=== PATIENT | female | born 1990 | race Two or more races ===

== ENCOUNTER 2024-12-19 19:26 | Observation (INO) | payer MEDICAID, SELFPAY ==
[2024-12-19] VITALS (31 sets, daily range): BP systolic 105–120; BP diastolic 59–77; PULSE 86–131; RESP 18–99; TEMP 36.6; O2SAT 96–100; BMI 31.6
[2024-12-19 19:55] LABS: Collection Type, Urine Voided; RBC,Urine 0 /hpf (0-3)
[2024-12-19] MEDS: RINGERS LACTATED 1000 ML 1,000 ML 999 ML IV (20:43)
[2024-12-19 20:45] LABS: Bacteria,Urine Rare; Bilirubin,Urine Negative (Negative); Blood,Urine Negative (Negative); Clarity,Urine Turbid (Clear/Hazy); Color,Urine Yellow (Lt Yel-Yel); Glucose, Urine Negative (Negative); Hyaline Casts,Urine < 1 /hpf (0-1); Ketones,Urine Trace (Negative); Leukocyte Esterase,Urine Positive (Negative); Nitrite,Urine Negative (Negative); PH,Urine 6.5 (5.0-7.0); Protein,Urine 1+ (Neg - Trace); Specific Gravity,Urine 1.031 (1.001-1.035); Squamous Epithelial Cell,Urine 10 /hpf (0-5); WBC,Urine 7 /hpf (0-5)
== END 2024-12-19 22:14 | disposition home or self-care (01) ==
PROVIDERS: Admitting Provider Obstetrics & Gynecology; Visit Provider Obstetrics & Gynecology
DX: O47.03 False labor before 37 completed weeks of gestation, third trimester (principal); Z3A.33 33 weeks gestation of pregnancy
CPT/HCPCS: 59025; 59899; 81001; G0378; J7120

== ENCOUNTER 2025-01-30 16:12 | Observation (INO) | payer MEDICAID, SELFPAY ==
[2025-01-30 16:21] VITALS: BP 107/75; PULSE 97; RESP 18; RESP 98; TEMP 36.7; BMI 31.8
[2025-01-30 16:25] VITALS: BP 107/75; PULSE 97
--- NOTE | 2025-01-30 16:40 | XR_ITS ---
Examination: Biophysical profile, ultrasound Date and time of exam: January 30, 2025 1637 hours INDICATIONS: Decreased movement today Technique: Multiple transabdominal sonographic images of the pelvis abdomen obtained. Attention is directed to the breathing movement, gross body movement, amniotic fluid volume and tone. Findings: Amniotic fluid index 7.4 cm Total biophysical profile is 8 of 8. breathing movement is 2. Gross body movement is 2. tone is 2. Qualitative amniotic fluid volume is 2 Impression: Biophysical profile is 8 of 8.
--- NOTE | 2025-01-30 16:41 | XR_ITS ---
Examination: age limited TECHNIQUE: Limited transabdominal sonographic images pelvis Date and time: January 30, 2025, 1653 hours INDICATIONS: Vaginal bleeding today. FINDINGS: Placenta anterior grade 3, no placenta previa and no placental abruption IMPRESSION: No placental previa, no placental abruption
[2025-01-30 16:55] VITALS: BP 111/71; PULSE 82
[2025-01-30 17:25] VITALS: BP 108/71; PULSE 86
--- NOTE | 2025-01-30 21:27 | ESPR_ITS ---
Documentation for date of: 01/30/25 OB Labor Progress Note Pelvic Exam Dilation (cm): 1 Effacement (%): thick station: -3 Amniotic membrane status: Intact Contractions Monitor mode: External Contraction frequency: 1-14 Status status: Category l Assessment and Plan Comments: Triage Note Liz is a 34yo with SIUP at 40&5wk presenting to L&D for episode of spotting earlier today followed by scant dark brown discharge. No lof, no regular ctx pattern. Somewhat less movement noted on questioning, but hasn't done kick counts. Current : This has been uncomplicated, she has had regular OB care with Dr. Juarez's office ROS negative other than what was described above. Vitals wnl, afebrile General: well developed, well nourished, no acute distress, conversant Cardiac: normal heart rate Lungs: breathing without distress Abdomen: soft, gravid, non-tender, no rebound or guarding Extremities: no pain with palpation of calves SCE: 1/thick/-3, scant brown discharge on exam glove per RN NST: Reactive, +accels, no decels, mod dagmar [place]: no ctx pattern Radiology: Examination: age limited TECHNIQUE: Limited transabdominal sonographic images pelvis Date and time: January 30, 2025, 1653 hours INDICATIONS: Vaginal bleeding today. FINDINGS: Placenta anterior grade 3, no placenta previa and no placental abruption IMPRESSION: No placental previa, no placental abruption Examination: Biophysical profile, ultrasound Date and time of exam: January 30, 2025 1637 hours INDICATIONS: Decreased movement today Technique: Multiple transabdominal sonographic images of the pelvis abdomen obtained. Attention is directed to the breathing movement, gross body movement, amniotic fluid volume and tone. Findings: Amniotic fluid index 7.4 cm Total biophysical profile is 8 of 8. breathing movement is 2. Gross body movement is 2. tone is 2. Qualitative amniotic fluid volume is 2 Impression: Biophysical profile is 8 of 8. Assessment: Liz is a 34yo with SIUP at 40&5wk with episode of spotting likely 2/2 cervical changes. No evidence of labor based on SCE and toco. Vitals wnl, benign exam. Reassuring status with Reactive NST and BPP 8/8 with ALINE 7.4cm (patient endorsed active FM during her time in triage). Plan: -Provided reassurance -Continue routine follow up with OBGYN within 1 week -Return precautions discussed -Safe for discharge home at this time Jeri Taylor MD
== END 2025-01-30 17:40 | disposition home or self-care (01) ==
PROVIDERS: Admitting Provider Obstetrics & Gynecology; Visit Provider Obstetrics & Gynecology
DX: O46.93 Antepartum hemorrhage, unspecified, third trimester (principal); O36.8130 Decreased fetal movements, third trimester, not applicable or unspecified; Z3A.39 39 weeks gestation of pregnancy
CPT/HCPCS: 59025; 59899; 76815; 76819

== ENCOUNTER 2025-02-02 17:20 | Inpatient (IN) | payer MEDICAID, SELFPAY ==
[2025-02-02] VITALS (22 sets, daily range): BP systolic 107–134; BP diastolic 57–85; PULSE 88–121; RESP 20–100; TEMP 37.2; O2SAT 80–100; BMI 32.0
[2025-02-02 18:14] LABS: Basophils # (Auto) 0.0 Thou/mm3 (0.0-0.2); Basophils % (Auto) 0 % (0-2.5); Eosinophils # (Auto) 0.0 Thou/mm3 (0.0-0.5); Eosinophils % (Auto) 0 % (0-10); Hematocrit 35.6 % (36.0-46.0); Hemoglobin 11.3 g/dL (12.0-16.0); Immature Granulocytes Auto 0.05 Thou/mm3 (0.00-0.00); Lymphocytes # (Auto) 2.2 Thou/mm3 (1.0-4.8); Lymphocytes % (Auto) 19 % (10-50); Mean Corpuscular HGB Conc 31.7 g/dl (31.0-37.0); Mean Corpuscular Hemoglobin 27.7 pg (25.0-35.0); Mean Corpuscular Volume 87 fL (80-100); Monocytes # (Auto) 0.6 Thou/mm3 (0.0-0.8); Monocytes % (Auto) 5 % (0-12); Neutrophils # (Auto) 8.8 Thou/mm3 (1.8-7.7); Neutrophils % (Auto) 76 % (37-80); Nucleated Red Blood Cell # 0.00 Thou/mm3 (0.00-0.00); Nucleated Red Blood Cell % 0 /100 WBC (0); Platelet Count 363 Thou/mm3 (140-440); RDW Standard Deviation 46.2 fL (36.4-46.3); Red Blood Count 4.08 Miln/mm3 (4.00-5.20); White Blood Count 11.6 Thou/mm3 (3.6-11.0)
[2025-02-02] MEDS: RINGERS LACTATED 1000 ML 1,000 ML 100 ML IV (18:14)
[2025-02-02] MEDS: Ampicillin Inj 2,000 MG in SODIUM CHLORIDE 0.9% (POP) 100 ML 200 MG IV (18:15)
[2025-02-02] MEDS: fentaNYL CIT INJ 50 mCg/ML AMP 2ML 100 MCG IVP (18:18)
[2025-02-02 18:57] LABS: Syphilis Nonreactive (Nonreactive)
[2025-02-02] MEDS: OXYTOCIN in NS 20 units 20 UNIT/1,000 ML BAG 125 UNIT IV (19:06)
[2025-02-02] MEDS: LIDOCAINE HCL 1% 20 ML VIAL INFL (19:09)
--- NOTE | 2025-02-02 20:03 | PD.LDHP ---
Documentation for date of: 02/02/25 OB Labor/Induct. HPI History of Present Illness Chief complaint: Active labor : 5 Para: 3 Term pregnancies: 3 pregnancies: 0 Living children: 3 History of Abortions: Spontaneous and Elective: 1 History of Vaginal deliveries: 3 History of sections: No History of : No Date of last menstrual period: 04/27/24 DASHA: 02/01/25 Gestational Age (weeks): 40 Gestational Age (days): 1 Gestational age based on last menstrual period: 40 History of present illness: The patient is a 34-year-old -0-1 3 with a history of vaginal delivery x 3 in the past who presented in to OB triage at 1700 02/01/25 in active labor. All care is up-to-date in the chart with Dr Juarez. Her EDC is 02/01/2025 making her 40 and 1 sevenths weeks today. She was 4 cm when she presented. She rapidly progressed to 5 to 6 cm. At 1838 she was 9 cm and I ruptured her membranes. She began pushing shortly after delivering a liveborn male at 1900 on 02/02/2025. Of note her group B strep was unknown. She was given 1 dose of ampicillin prior to delivery. History of Present Dating criteria: LMP confirmed by 1st trimester US Adequate Care: Yes Ultrasounds: normal mid trimester US Obstetrical complications: none Medical complications: none Labs Maternal Blood Type: O Pos Labs: Positive: Rubella Titre, Negative: RPR, Hepatitis B, HIV, Chlamydia and Gonorrhea and Unknown: Herpes Type 1, Herpes Type 2, Group Beta Strep and Covid-19 Past Medical History Surgical History SURGICAL: Negative Section Meds Home Medications and Allergies Home Medications ?Medication ?Instructions ?Recorded ?Confirmed ?Type vit no.95-ferrous 1 tab PO QDAY 09/17/20 02/02/25 History fumarate 28 mg-folic acid 800 mcg tablet () Allergies Allergy/AdvReac Type Severity Reaction Status Date / Time No Known Allergies Allergy Verified 02/02/25 17:25 OB Exam Physical Exam Vital signs: Temp Pulse Resp BP Pulse Ox 98.9 F 100 20 112/57 L 85 L 02/02/25 17:27 02/02/25 19:51 02/02/25 17:27 02/02/25 19:51 02/02/25 18:03 Narrative: Patient was extremely uncomfortable with contractions on admission. Detailed Labor and Delivery Exam Cervix position: mid station: -2 Consistency: soft Presentation: Vertex Membranes: intact monitor accelerations: 15x15 monitor decelerations: None predatory animal exterminator variability: Moderate (11-25) Contraction frequency (min): Every 3 minutes Contraction intensity: Strong OB Results Labs 02/02/25 17:50 Labs: Short CBC 02/02/25 Range/Units 17:50 WBC 11.6 H (3.6-11.0) Thou/mm3 Hgb 11.3 L (12.0-16.0) g/dL Hct 35.6 L (36.0-46.0) % Plt Count 363 (140-440) Thou/mm3 OB Assessment & Plan Assessment and Plan (1) Active labor at term: Status: Acute Assessment and plan: Admit patient. She is moving very quickly. Fentanyl for pain. Ampicillin for unknown group B strep. No time for epidural. Additional Plan Induction method: none Plan: anticipate NVD
[2025-02-02] MEDS: IBUPROFEN TAB 400 MG TABLET 800 MG PO (20:05)
[2025-02-02] MEDS: BENZO/LANO/ALOE (Dermoplast) 60 GM CAN 1 SPRAY TOP (20:08)
--- NOTE | 2025-02-02 20:21 | OBDSUM_ITS ---
Data ([facility]) Data Hx Section: No Maternal Blood Type: O Pos Rubella Titre: Positive RPR: Non-reactive Labs: Negative: RPR, Hepatitis B, HIV, Chlamydia and Gonorrhea and Unknown: Herpes Type 1, Herpes Type 2 and Group Beta Strep : 5 Term: 3 : 0 Livin Abortions: Spontaneous & Theraputic: 1 Delivery Data ([facility]) Labor Data Initiation of labor: Spontaneous Induction/Augmentation Agent: None ROM date: 02/02/25 ROM time: 18:38 Amniotic membrane rupture type: Spontaneous Amniotic fluid description: Clear and Blood Tinged Delivery Data EDC: 02/01/25 EDC calculated by:: LMP/early US confirmation Date of arrival to unit: 02/02/25 Time of arrival to unit: 17:00 Onset of labor date: 02/02/25 Onset of labor time: 15:00 Complete dilation date: 02/02/25 Complete dilation time: 18:38 delivery date: 02/02/25 delivery time: 19:00 Gestational age (weeks): 40 Gestational age (days): 1 Placenta delivery date: 02/02/25 Placenta delivery time: 19:05 Stage 1 total time: Labor - Stage 1 Duration 3 hours and 38 minutes Delivered by: Dr. Lemon Delivery nurse: lucita rn/ evy rn [place] nurse: rachel luis rn Scientific Affairs Manager at delivery: Yes (Dr. Gracia) Support person(s) at delivery: farther of the baby Antonio Other staff at delivery: Consuelo Hamm RN Delivery Method Delivery method: Normal Vaginal Delivery Presentation: Vertex position: OA Anesthesia Type Anesthesia Type: None Anesthesia type: other (Patient given 1 dose of fentanyl about 30 minutes prior to delivery.) Delivery Room Medications Delivery room medications: Lidocaine (local) and Pitocin 20 u IV Placenta Placenta delivery description: Spontaneous Cord blood sent to lab: Yes cord blood collection: Cord Blood Type Episiotomy Episiotomy description: None Lacerations #1: Perineal: 1st degree Perineal repair Sutures used for repair: 4.0 Chromic EBL Estimated blood loss (ml): 100 Umbilical Cord cord description: 3 Vessels Additional Procedures The patient is a 34-year-old -0-1-3 at 40 weeks and 1 day with all care uncomplicated Dr Juarez who presented to triage about 1700 on 02/02/2025 reporting active labor. She was approximately 4 cm dilated when she presented. She rapidly progressed to 5 to 6 cm and was placed in a room. She was 8 to 9 cm at 1838 and an amniotomy was performed. She began pushing shortly thereafter. She pushed for approximately 20 minutes delivering a liveborn male at 1900. Findings :liveborn male in the direct OP presentation with no nuchal cord and no meconium. The baby did have a foot cord x 1. Of note the baby was vigorous at and was placed directly on mom's chest. The cord was clamped and cut after waiting approximately 1 to 2 minutes. Cord gases were saved. Cord blood was collected. Apgars were 8 and 9. Weight was 6 pounds 4 ounces. The placenta was then complete spontaneous grossly normal delivering approximately 5 minutes after the baby delivered. The patient sustained a very small first-degree perineal laceration repaired in a standard fashion under local anesthesia using 4-0 chromic. Complications were none. Condition both mom and infant were in stable condition the delivery room. Complications Complications: None Data ([facility]) Data 's gender: Male Identification band number: [id number] weight (gms): 2830 g Weight (pounds): 6 lbs and 3.8 ozs 1 minute: 8 5 minutes: 9
[2025-02-03 00:18] VITALS: BP 101/64; PULSE 95; RESP 18; TEMP 36.4; O2SAT 96
[2025-02-03 01:33] VITALS: RESP 16
[2025-02-03 03:59] VITALS: BP 100/65; PULSE 93; RESP 15; TEMP 36.7; O2SAT 97
[2025-02-03 07:23] LABS: Basophils # (Auto) 0.0 Thou/mm3 (0.0-0.2); Basophils % (Auto) 0 % (0-2.5); Eosinophils # (Auto) 0.0 Thou/mm3 (0.0-0.5); Eosinophils % (Auto) 0 % (0-10); Hematocrit 32.7 % (36.0-46.0); Hemoglobin 10.5 g/dL (12.0-16.0); Immature Granulocytes Auto 0.05 Thou/mm3 (0.00-0.00); Lymphocytes # (Auto) 3.0 Thou/mm3 (1.0-4.8); Lymphocytes % (Auto) 23 % (10-50); Mean Corpuscular HGB Conc 32.1 g/dl (31.0-37.0); Mean Corpuscular Hemoglobin 27.8 pg (25.0-35.0); Mean Corpuscular Volume 87 fL (80-100); Monocytes # (Auto) 0.6 Thou/mm3 (0.0-0.8); Monocytes % (Auto) 5 % (0-12); Neutrophils # (Auto) 9.4 Thou/mm3 (1.8-7.7); Neutrophils % (Auto) 72 % (37-80); Nucleated Red Blood Cell # 0.00 Thou/mm3 (0.00-0.00); Nucleated Red Blood Cell % 0 /100 WBC (0); Platelet Count 303 Thou/mm3 (140-440); RDW Standard Deviation 45.7 fL (36.4-46.3); Red Blood Count 3.78 Miln/mm3 (4.00-5.20); White Blood Count 13.1 Thou/mm3 (3.6-11.0)
[2025-02-03 08:00] VITALS: BP 117/72; PULSE 90; RESP 17; TEMP 36.6; O2SAT 95
--- NOTE | 2025-02-03 08:41 | PD.LDPPPRG ---
Subjective Subjective Interval history: Delivery type: Patient doing well this morning. No acute complaints. Ambulating, tolerating p.o. and voiding without difficulty. HTN/Pre-Eclampsia screen: No chest pain, shortness of breath, headache, visual changes, epigastric or right upper quadrant pain. Breast-feeding, lochia diminishing. Bowel: Flatus+/ BM+ Exam Vital Signs Temp Pulse Resp BP Pulse Ox O2 Del Method 98.0 F 93 15 100/65 97 Room Air 02/03/25 03:59 02/03/25 03:59 02/03/25 03:59 02/03/25 03:59 02/03/25 03:59 02/03/25 03:59 Constitutional Constitutional: no acute distress Routine HEENT Exam Head: Present normocephalic and atraumatic Eye: Present EOMI and PERRL ENT: Present mucous membranes moist Routine Neck Exam Neck: Present supple and trachea midline Routine Respiratory Exam Respiratory: Present chest non-tender, lungs clear, normal breath sounds and no resp distress Routine Cardiovascular Exam Cardiovascular: Present RRR Routine Abdominal Exam Abdominal: Present soft and normoactive bowel sounds Routine Extremities Exam Extremities: Present full ROM Routine Skin Exam Skin: Present intact, dry and warm Routine Neurological Exam Neurological: Present alert, oriented X3 and CN II-XII intact Routine Psychiatric Exam Psychiatric: Present normal affect and normal thought process Objective Labs 02/03/25 06:46 Labs: Laboratory Results - last 24 hr 02/02/25 02/03/25 17:50 06:46 WBC 11.6 H 13.1 H RBC 4.08 3.78 L Hgb 11.3 L 10.5 L Hct 35.6 L 32.7 L MCV 87 87 MCH 27.7 27.8 MCHC 31.7 32.1 RDW Std Deviation 46.2 45.7 Plt Count 363 303 D Neut % (Auto) 76 72 Lymph % (Auto) 19 23 Fisher % (Auto) 5 5 Eos % (Auto) 0 0 Baso % (Auto) 0 0 Neut # (Auto) 8.8 H 9.4 H Lymph # (Auto) 2.2 3.0 Fisher # (Auto) 0.6 0.6 Eos # (Auto) 0.0 0.0 Baso # (Auto) 0.0 0.0 Immature Gran # (Auto) 0.05 H 0.05 H Absolute Nucleated RBC 0.00 0.00 Immature Gran % 0 0 Nucleated RBC % 0 0 Syphilis Serology Nonreactive Blood Type O Positive Antibody Screen NEGATIVE Blood Bank Wristband ID Yes Assessment & Plan Problem List (1) Active labor at term: Status: Acute (2) Vaginal delivery: Status: Acute Assessment and plan: 1. Continue routine /post-op care 2. Labs reviewed, cbc appropriate 3. Remove dressing/[place] 4. Encourage to ambulate, shower 5. Encourage PO intake, breast feeding Time Spent With Patient Time: Total time spent is greater than 50% in coordination of care (as documented) at patient's floor/unit and/or counseling patient:
--- NOTE | 2025-02-03 08:42 | PD.LDDS ---
DS: Providers Provider Date of admission: 02/02/25 17:42 Primary care physician: Physician No Primary/Family Admitting Provider: Chica Lemon MD ([facility]) Attending Provider on Admission: Venu Lakhani MD Consults: 02/03/25 02:23 Referral Routine Comment: Attending Provider on DC: Venu Lakhani MD Discharging Provider: Venu Lakhani MD DS: Diagnosis Discharge Diagnosis (1) Vaginal delivery: Status: Acute (2) care following vaginal delivery: Status: Acute Problem List Completed Was Problem List Reviewed/Reconciled?: Yes Summary/Hosp Course Brief History: The patient is a 34-year-old -0-1 3 with a history of vaginal delivery x 3 in the past who presented in to OB triage at 1700 02/01/25 in active labor. All care is up-to-date in the chart with Dr Juarez. Her EDC is 02/01/2025 making her 40 and 1 sevenths weeks today. She was 4 cm when she presented. She rapidly progressed to 5 to 6 cm. At 1838 she was 9 cm and I ruptured her membranes. She began pushing shortly after delivering a liveborn male at 1900 on 02/02/2025. Of note her group B strep was unknown. She was given 1 dose of ampicillin prior to delivery. Peripartum Data Delivery Method: Normal Vaginal Delivery Episiotomy Description: None Time Spent with Patient Time attestation: Total time spent providing and/or coordinating discharge services: Exam Vital Signs Temp Pulse Resp BP Pulse Ox O2 Del Method 98.0 F 93 15 100/65 97 Room Air 02/03/25 03:59 02/03/25 03:59 02/03/25 03:59 02/03/25 03:59 02/03/25 03:59 02/03/25 03:59 Discharge Plan Plan Patient Disposition: HOME (Self Care) Patient condition on transfer: Stable Prescriptions/Referrals Prescriptions/Med Rec: New ibuprofen 400 mg Tablet 800 mg PO Q8H PRN (Reason: See Comments) 10 Days Qty: 40 0RF docusate sodium [Stool Softener] 100 mg capsule 100 mg PO QDAY 30 Days Qty: 30 0RF Continued PNV no.95-ferrous fumarate-FA [] 28 mg iron- 800 mcg Tablet 1 tab PO QDAY Referrals: No Primary/Family,Physician [Primary Care Provider] - Patient/Caregiver Discharge Instructions Print Language: [place] Stand Alone Forms: Liz Award Info., Patient Portal Info Letter Planned Discharge Date 02/03/25
[2025-02-03] MEDS: DOCUSATE SOD 100 MG CAPSULE PO (11:06)
[2025-02-03] MEDS: IBUPROFEN TAB 400 MG TABLET 800 MG PO (11:07)
[2025-02-03 11:56] VITALS: BP 101/67; PULSE 91; RESP 16; TEMP 36.6; O2SAT 98
[2025-02-03 15:30] VITALS: BP 120/73; PULSE 79; RESP 18; TEMP 37; O2SAT 96
== END 2025-02-03 21:49 | disposition home or self-care (01) | DRG 560 ==
LOC: S4SX 19:16 → S4NX 23:41
PROVIDERS: Admitting Provider Obstetrics & Gynecology; Visit Provider Obstetrics & Gynecology
DX: O48.0 Post-term pregnancy (principal); Z37.0 Single live birth; Z3A.40 40 weeks gestation of pregnancy; O70.0 First degree perineal laceration during delivery
CPT/HCPCS: 36415; 85025; 86780; 86850; 86900; 86901; J0290; J2590; J3010; J3490; J7120; A9270

== ENCOUNTER → 2025-03-07 | Outpatient (CLI) | payer MEDICAID, SELFPAY ==
--- NOTE | 2025-03-07 09:12 | XR_ITS ---
Examination: Breast ultrasound, unilateral, left complete Date and time of exam: February 27, 2025 0935 hrs. Indications: Palpable lump left breast note is beginning 3 weeks ago. Technique: Real-time ruelas scale ultrasonographic imaging performed left breast including all 4 quadrants as well as nipple retroareolar and axillary region. Findings: 9:00 cyst 20 x 24 mm with internal echoes 11:00 nodule 5 x 5 mm circumscribed Dilated ducts, the patient is breast-feeding Impression: BI-RADS Category 3: Probably benign findings One additional 6 month left breast sonogram follow-up recommended
== END | disposition home or self-care (01) ==
PROVIDERS: Referring Provider Physician Assistant Medical; Visit Provider Physician Assistant Medical
DX: R92.8 Other abnormal and inconclusive findings on diagnostic imaging of breast (principal)
CPT/HCPCS: 76641